=== PATIENT | male | born 1995 | race Two or more races ===

== ENCOUNTER → 2025-05-02 | Outpatient (CLI) | payer OTHER, SELFPAY ==
--- NOTE | 2025-05-02 11:30 | XR_ITS ---
Examination: MRI shoulder arthrogram, left. Fluoroscopy Date and time of exam:05/02/2025, 12:28 PM Fluoroscopy time: 0.8 minutes. Dose: 8.93 mGy A timeout was completed verifying correct patient, procedure, site, positioning. The patient was placed in a supine position for the arthrogram Technique: Skin over the anterior shoulder is prepped. Local anesthesia obtained with 1% lidocaine, 1 cc divided doses. 22-gauge Chiba needle was passed into the shoulder joint anteriorly, utilizing fluoroscopic guidance. 1 cc of Isoview 300 injected confirming position of the needle tip within the shoulder joint. 12 cc bacteriostatic 0.9% with 0.1cc gadolinium introduced into the shoulder for subsequent MRI arthrogram. The patient was in satisfactory and stable condition at completion of the procedure. Estimated blood loss 0 cc. Findings: Contrast material is present within the shoulder joint indicating successful shoulder arthrogram. Impression: Successful left shoulder arthrogram for MRI study to follow. .
--- NOTE | 2025-05-02 12:00 | XR_ITS ---
Examination: MRI shoulder, left, post intra-articular contrast Shoulder arthrogram Exam date and time:May 02, 2025 12:28 PM INDICATIONS: Diagnosis superior labral tear, shoulder pain post injury June 19, 2024. Technique: Multiple axial, sagittal and coronal sections of the shoulder have been obtained. Siemens high-resolution 1.5 Marce, MRI scanner is utilized. Shoulder arthrography is performed. Skin prepped over the shoulder joint. Maximum sterile barrier technique, hand hygiene. 2 cc 1% lidocaine administered for local anesthesia. Utilizing fluoroscopic guidance, 22-gauge needle placed in the glenoid humeral joint space. 12 cc of dilute gadolinium is introduced into the shoulder joint via an anterior approach. Axial, sagittal and coronal images are obtained post intra-articular contrast injection. Findings: Rotator cuff intact Long head biceps is in the bicipital groove. No tear of biceps superior labral anchor is seen. Retraction musculotendinous junction rotator cuff is not seen Tendinosis pattern not seen Atrophy supraspinatus muscle is not seen Atrophy infraspinatus muscle is not seen Horizontal acromion. Acromioclavicular joint intact. Os acromiale is not identified. Tears of the anterior superior labrum Bony glenoid fossa no osseous defect. Avascular necrosis is not seen. Defect posterolateral margin humeral head not seen. IMPRESSION: Rotator cuff intact Anterior superior labral tears
[2025-05-02] MEDS: LIDOCAINE INJ PF 1% 30 ML VIAL INFL (12:17)
[2025-05-02] MEDS: SODIUM CHLORIDE 0.9% INJ 10 ML VIAL 20 ML INFL (12:18)
== END | disposition home or self-care (01) ==
PROVIDERS: PCP Specialist; Referring Provider Specialist; Visit Provider Specialist
DX: S43.432D Superior glenoid labrum lesion of left shoulder, subsequent encounter (principal); X58.XXXD Exposure to other specified factors, subsequent encounter
CPT/HCPCS: 23350; 73040; 73222; A4216; J3490